=== PATIENT | female | born 1945 | race Caucasian/White ===

== ENCOUNTER 2016-07-01 15:28 | Inpatient (IN) ==
[2016-07-01] MEDS: *HR* HYDROcodone/Acet 5/325 mg TABLET PO PRN ×3 (17:17→23:08)
[2016-07-01] MEDS: Aspirin Enteric Coated 325 MG Tablet PO SCH (22:10)
[2016-07-01] MEDS: tiZANidine 4 MG TABLET PO SCH (22:14)
[2016-07-01] MEDS: Gabapentin 300 MG CAPSULE PO SCH (22:14)
[2016-07-01] MEDS: Famotidine 20 MG TABLET PO SCH (22:15)
[2016-07-01] MEDS: Primidone 50 MG TABLET PO SCH (22:22)
[2016-07-02] MEDS: *HR* HYDROcodone/Acet 5/325 mg TABLET PO PRN ×4 (04:03→21:31)
[2016-07-02 05:11] LABS: INR 1.2; Prothrombin Time 12.5 Seconds (9.4-12.1)
[2016-07-02 05:13] LABS: Activated Partial Thrombo Time 30.8 Seconds (26.0-36.0); Basophils % 0.6 %; Eosinophils # 0.2 K/mcL (0.0-0.6); Eosinophils % 3.1 %; Hematocrit 28.3 % (35.3-44.9); Hemoglobin 9.4 g/dL (11.5-15.4); Immature Granulocytes % 0.3 % (0-4); Lymphocytes # 1.4 K/mcL (0.6-4.6); Lymphocytes % 22.7 %; Mean Corpuscular HGB Conc 33.2 g/dL (31.6-35.5); Mean Corpuscular Hemoglobin 30.1 pg (28.0-33.3); Mean Corpuscular Volume 90.7 fL (83.0-100.0); Mean Platelet Volume 10.5 fL (9.4-12.4); Monocytes # 0.7 K/mcL (0.0-1.3); Monocytes % 10.7 %; Neutrophils # 3.9 K/mcL (1.6-8.9); Platelet Count 220 K/mcL (140-400); Red Blood Count 3.12 M/mcL (3.82-4.97); Red Cell Distribution Width 12.7 % (11.5-14.5); Segmented Neutrophils % 62.6 %
[2016-07-02 05:19] LABS: BUN/Creatinine Ratio 13 (6-26); Blood Urea Nitrogen 8 mg/dL (7-20); Calcium 8.6 mg/dL (8.6-10.8); Carbon Dioxide 22 mEq/L (19-29); Chloride 106 mEq/L (98-109); Glucose 100 mg/dL (70-99); Osmolality,Calculated 286 (280-300); Potassium 3.8 mEq/L (3.5-4.5); Sodium 139 mEq/L (136-145); eGFR For African Americans > 60 (> 60); eGFR For Non-African Americans > 60 (> 60)
[2016-07-02] MEDS: (Fluticasone/Vilanterol [Breo Ellipta 100-25 Mcg Inh]) IH SCH (08:30)
[2016-07-02] MEDS: Primidone 50 MG TABLET PO SCH ×2 (08:36→21:27)
[2016-07-02] MEDS: Furosemide 40 MG TABLET PO SCH (08:36)
[2016-07-02] MEDS: Aspirin Enteric Coated 325 MG Tablet PO SCH ×2 (08:36→21:28)
[2016-07-02] MEDS: Famotidine 20 MG TABLET PO SCH ×2 (08:36→21:29)
--- NOTE | 2016-07-02 10:47 | Internal Med History&Physical ---
Date of Encounter: 07/02/16 Time of Encounter: 10:45 Assessment and Plan (1) S/P TKR (total knee replacement) Current visit: Yes Status: Acute PT OT will be counseled to to work on functional mobility, improving balance, transfer, gait PTOT to work on increasing independence and safety prior to returning home. Qualifiers: Laterality: right Qualified Code(s): Z96.651 - Presence of right artificial knee joint (2) Hypertension Current visit: Yes Status: Chronic Qualifiers: Hypertension type: essential hypertension Qualified Code(s): I10 - Essential (primary) hypertension Internal Medicine - H&P: HPI Admitted From: Intrahospital Transfer Plans for Post Hospital Care: Home History of present illness: Ms. Reyez is a 71 year old female admitted to this facility for rehabilitation after undergoing a total knee replacement on the right secondary to osteoarthritis. On today's examination, patient only complains of moderate postop pain. She denies any shortness of breath. No chest pain. No nausea vomiting. Complains of swelling to the right lower extremities postop. Patient has had previous history of coronary disease and CHF as well as renal insufficiencies. Past Med Surg Social Fam HX - Past Medical History Medical history: arthritis, asthma, CHF, fibromyalgia, GERD, hyperlipidemia, hypertension, thyroid disease, other Psychiatric history: anxiety, depression - Past Surgical History Surgical History: knee replacement, other - Social History Smoking Status: Never smoker Smokeless Tobacco Status: No Alcohol use: none Drug use: none - Family History Father Adopted: No Living Status: Age at : 89 Cause of : old age Hx Family Cardiac Disorders: Yes (chf) Hx Family GI Disorders: Yes (liver disease) Internal Medicine - H&P: Meds Furosemide [Lasix] 40 mg PO DAILY 08/28/15 [History] Hydroxychloroquine [Plaquenuil] 200 mg PO BID 08/28/15 [History] Levothyroxine [Synthroid] 75 mcg PO DAILY 08/28/15 [History] Losartan Potassium [Cozaar] 100 mg PO DAILY 08/28/15 [History] Potassium Chloride [K-Tab ER] 10 meq PO DAILY 08/28/15 [History] Pravastatin Sodium [Pravachol] 20 mg PO DAILY 08/28/15 [History] Primidone [Mysoline] 100 mg PO BID 08/28/15 [History] Propranolol HCl 40 mg PO BID 08/28/15 [History] Sertraline [Zoloft] 100 mg PO DAILY 08/28/15 [History] HYDROcodone/Acet 5/325 mg [[place] 5-325 mg] 1 tab PO Q4H PRN #20 tab 02/10/16 [Rx ] Aspirin [Ecotrin] 325 mg PO BID 07/01/16 [History] Fluticasone/Vilanterol [Breo Ellipta 100-25 Mcg INH] 1 puff IH DAILY 07/01/16 [ History] Gabapentin [Neurontin] 300 mg PO HS 07/01/16 [History] HYDROcodone/Acet 5/325 mg [[place] 5-325 mg] 2 tab PO Q4H PRN 07/01/16 [History] Meclizine [Antivert] 25 mg PO TID PRN 07/01/16 [History] Ranitidine HCl [Heartburn Relief] 150 mg PO BID 07/01/16 [History] Tizanidine HCl 2 mg PO HS 07/01/16 [History] Allergies morphine Allergy (Verified 08/28/15 11:43) Rash All Systems PM: A 10-system review of systems was performed and is negative for pertinent findings except as documented above in the HPI. - Constitutional Constitutional: fatigue, malaise, no chills, no fever(s), no night sweats - Cardiovascular Cardiovascular ROS IM: irregular heart rhythm, no chest pain, no diaphoresis, no dyspnea, no lightheadedness, no palpitations, no syncope - Respiratory Respiratory: no cough, no dyspnea, no wheezing, no excessive phlegm production - Gastrointestinal Gastrointestinal: no abdominal pain, no diarrhea, no hematemesis, no hematochezia, no melena, no nausea, no vomiting - Musculoskeletal Musculoskeletal ROS IM: arthralgias, back pain, joint swelling, limited range of motion, stiffness - Neurological Neurological ROS: no confusion, no convulsions, no focal weakness, no numbness, no tingling, no tremor(s) - Constitutional Vitals: Temp Pulse Resp BP Pulse Ox 98.5 F 68 16 112/60 96 07/02/16 07:07 07/02/16 07:07 07/02/16 07:07 07/02/16 07:07 07/02/16 04:00 General appearance: Present: A&O X 3, pleasant, no acute distress - Respiratory Respiratory exam: Present: CTAB. Absent: accessory muscle use, rales, rhonchi, wheezes - Cardiovascular Cardiovascular exam: Present: RRR, +S1, +S2. Absent: diastolic murmur, gallop, rubs, systolic murmur - GI/Abdominal GI/Abdominal exam: Present: normal bowel sounds, soft, no peritoneal signs. Absent: distended, tenderness - Expanded Lower Extremities Exam Knee exam: Present: ecchymosis, swelling, tenderness Lower Leg exam: Present: swelling Internal Med - H&P Results - Labs CBC & Chem 7: 07/02/16 04:58 07/02/16 04:58 Labs: Short CBC 07/02/16 Range/Units 04:58 WBC 6.2 (4.3-11.1) K/mcL Hgb 9.4 L (11.5-15.4) g/dL Hct 28.3 L (35.3-44.9) % Plt Count 220 (140-400) K/mcL Neutrophils # 3.9 (1.6-8.9) K/mcL BMP 07/02/16 04:58 Sodium 139 Potassium 3.8 Chloride 106 Carbon Dioxide 22 BUN 8 Creatinine 0.64 Glucose 100 H Calcium 8.6 - VTE Documentation of Mechanical Device: Intermittent pneumatic compression device
[2016-07-02] MEDS: tiZANidine 4 MG TABLET PO SCH (21:29)
[2016-07-02] MEDS: Gabapentin 300 MG CAPSULE PO SCH (21:29)
[2016-07-03] MEDS: *HR* HYDROcodone/Acet 5/325 mg TABLET PO PRN ×3 (03:35→21:23)
[2016-07-03 05:54] LABS: Basophils % 0.6 %; Eosinophils # 0.3 K/mcL (0.0-0.6); Eosinophils % 3.9 %; Hematocrit 29.1 % (35.3-44.9); Hemoglobin 9.5 g/dL (11.5-15.4); Immature Granulocytes % 0.5 % (0-4); Lymphocytes # 1.4 K/mcL (0.6-4.6); Lymphocytes % 22.6 %; Mean Corpuscular HGB Conc 32.6 g/dL (31.6-35.5); Mean Corpuscular Hemoglobin 29.6 pg (28.0-33.3); Mean Corpuscular Volume 90.7 fL (83.0-100.0); Mean Platelet Volume 10.4 fL (9.4-12.4); Monocytes # 0.7 K/mcL (0.0-1.3); Monocytes % 10.8 %; Neutrophils # 3.9 K/mcL (1.6-8.9); Platelet Count 251 K/mcL (140-400); Red Blood Count 3.21 M/mcL (3.82-4.97); Red Cell Distribution Width 12.6 % (11.5-14.5); Segmented Neutrophils % 61.6 %
[2016-07-03 05:58] LABS: BUN/Creatinine Ratio 13 (6-26); Blood Urea Nitrogen 9 mg/dL (7-20); Calcium 8.7 mg/dL (8.6-10.8); Carbon Dioxide 24 mEq/L (19-29); Chloride 105 mEq/L (98-109); Glucose 103 mg/dL (70-99); Osmolality,Calculated 289 (280-300); Potassium 4.5 mEq/L (3.5-4.5); Sodium 140 mEq/L (136-145); eGFR For African Americans > 60 (> 60); eGFR For Non-African Americans > 60 (> 60)
[2016-07-03] MEDS: Primidone 50 MG TABLET PO SCH ×2 (08:24→21:26)
[2016-07-03] MEDS: Furosemide 40 MG TABLET PO SCH (08:25)
[2016-07-03] MEDS: Aspirin Enteric Coated 325 MG Tablet PO SCH ×2 (08:25→21:25)
[2016-07-03] MEDS: Famotidine 20 MG TABLET PO SCH ×2 (08:25→21:24)
[2016-07-03] MEDS: (Fluticasone/Vilanterol [Breo Ellipta 100-25 Mcg Inh]) IH SCH (08:32)
--- NOTE | 2016-07-03 13:26 | Internal Med Progress Note ---
Date of Encounter: 07/03/16 Time of Encounter: 13:24 - Assessment and plan (1) Sjogrens syndrome Current Visit: No Status: Chronic Assessment and plan: This noted Qualifiers: Qualified Code(s): M35.00 - Sicca syndrome, unspecified (2) S/P TKR (total knee replacement) Current Visit: Yes Status: Acute Assessment and plan: Patient is here for rehabilitation status post total knee replacement. Qualifiers: Laterality: right Qualified Code(s): Z96.651 - Presence of right artificial knee joint - Time Spent With Patient less than 15 minutes - Subjective Interval history: The patient is doing well she is minimum assist - Constitutional Vitals: Temp Pulse Resp BP Pulse Ox 98.3 F 73 16 155/79 96 07/03/16 07:15 07/03/16 09:23 07/03/16 09:23 07/03/16 09:23 07/03/16 09:23 General appearance: Present: A&O X 3, pleasant, no acute distress - Head Head exam: Present: atraumatic, normal inspection, normocephalic - Neck Neck exam general surgery: Present: supple, trachea midline. Absent: lymphadenopathy - Respiratory Respiratory exam: Present: CTAB. Absent: accessory muscle use, rales, rhonchi, wheezes - Cardiovascular Cardiovascular exam: Present: RRR, +S1, +S2. Absent: diastolic murmur, gallop, rubs, systolic murmur Internal Medicine: Result - Labs CBC & Chem 7: 07/03/16 05:35 07/03/16 05:35 Labs: Short CBC 07/03/16 Range/Units 05:35 WBC 6.4 (4.3-11.1) K/mcL Hgb 9.5 L (11.5-15.4) g/dL Hct 29.1 L (35.3-44.9) % Plt Count 251 (140-400) K/mcL Neutrophils # 3.9 (1.6-8.9) K/mcL BMP 07/03/16 05:35 Sodium 140 Potassium 4.5 Chloride 105 Carbon Dioxide 24 BUN 9 Creatinine 0.69 Glucose 103 H Calcium 8.7 Lab is stable - ABG Interpretation ABG results: PT/INR, D-dimer PT 12.5 Seconds (9.4-12.1) H 07/02/16 04:58 - VTE Documentation of Mechanical Device: Intermittent pneumatic compression device Consult Discharge Plan - Plan Referrals: Jacques Escamilla MD [Primary Care Provider] - Rene Yang DO [Non-Partnered Physician] - 07/13/16 9:15 am (2 week follow up at [address] [place] [address], [place] [address] )
[2016-07-03] MEDS: tiZANidine 4 MG TABLET PO SCH (21:23)
[2016-07-03] MEDS: Gabapentin 300 MG CAPSULE PO SCH (21:25)
[2016-07-04] MEDS: *HR* HYDROcodone/Acet 5/325 mg TABLET PO PRN ×5 (03:36→21:26)
[2016-07-04] MEDS: Primidone 50 MG TABLET PO SCH ×2 (08:37→21:24)
[2016-07-04] MEDS: Furosemide 40 MG TABLET PO SCH (08:37)
[2016-07-04] MEDS: Aspirin Enteric Coated 325 MG Tablet PO SCH ×2 (08:37→21:24)
[2016-07-04] MEDS: (Fluticasone/Vilanterol [Breo Ellipta 100-25 Mcg Inh]) IH SCH (08:38)
[2016-07-04] MEDS: Famotidine 20 MG TABLET PO SCH ×2 (08:38→21:25)
--- NOTE | 2016-07-04 14:33 | Internal Med Progress Note ---
Date of Encounter: 07/04/16 Time of Encounter: 14:31 - Assessment and plan (1) Sjogrens syndrome Current Visit: No Status: Chronic Assessment and plan: Noted Qualifiers: Qualified Code(s): M35.00 - Sicca syndrome, unspecified (2) S/P TKR (total knee replacement) Current Visit: Yes Status: Acute Assessment and plan: Reason for her admission to rehabilitation. Patient is doing quite well Qualifiers: Laterality: right Qualified Code(s): Z96.651 - Presence of right artificial knee joint - Subjective Interval history: The patient is doing well she is minimum assist. She gets out of bed on her own and ambulates without a great deal of difficulty using a walker - Constitutional Vitals: Temp Pulse Resp BP Pulse Ox 97.1 F L 70 16 124/56 95 07/04/16 07:00 07/04/16 07:00 07/04/16 07:00 07/04/16 07:00 07/04/16 07:00 General appearance: Present: A&O X 3, pleasant, no acute distress - Head Head exam: Present: atraumatic, normal inspection, normocephalic - Neck Neck exam general surgery: Present: supple, trachea midline. Absent: lymphadenopathy - Respiratory Respiratory exam: Present: CTAB. Absent: accessory muscle use, rales, rhonchi, wheezes - Cardiovascular Cardiovascular exam: Present: RRR, +S1, +S2. Absent: diastolic murmur, gallop, rubs, systolic murmur Internal Medicine: Result - Labs CBC & Chem 7: 07/03/16 05:35 07/03/16 05:35 Labs: Labs look stable - ABG Interpretation ABG results: PT/INR, D-dimer PT 12.5 Seconds (9.4-12.1) H 07/02/16 04:58 - VTE Documentation of Mechanical Device: Intermittent pneumatic compression device Consult Discharge Plan - Plan Referrals: Jacques Escamilla MD [Primary Care Provider] - Rene Yang DO [Non-Partnered Physician] - 07/13/16 9:15 am (2 week follow up at [address] [place] [address], [place] [address] )
[2016-07-04] MEDS: tiZANidine 4 MG TABLET PO SCH (21:24)
[2016-07-04] MEDS: Gabapentin 300 MG CAPSULE PO SCH (21:25)
[2016-07-05] MEDS: *HR* HYDROcodone/Acet 5/325 mg TABLET PO PRN ×4 (04:07→20:00)
[2016-07-05] MEDS: Furosemide 40 MG TABLET PO SCH (10:13)
[2016-07-05] MEDS: Aspirin Enteric Coated 325 MG Tablet PO SCH ×2 (10:14→19:57)
[2016-07-05] MEDS: Primidone 50 MG TABLET PO SCH ×2 (10:14→19:58)
[2016-07-05] MEDS: Famotidine 20 MG TABLET PO SCH ×2 (10:14→19:59)
[2016-07-05] MEDS: (Fluticasone/Vilanterol [Breo Ellipta 100-25 Mcg Inh]) IH SCH (10:16)
--- NOTE | 2016-07-05 12:19 | Physical Med Progress Note ---
Date of Encounter: 07/05/16 Time of Encounter: 12:17 Physical Medicine-PN: Subj Interval history: PMR PCC Note Ms. Reyez is SBA/Mod I for transfers. Ambulating 120 feet with Ariel/SBA. Patient performed steps-SBA/CGA with cues. She will need a tub transfer bench- patient unable to step over the tub. Patient is home alone in a 3 story dwelling. Plan for continued PT with home health. Plan for discharge to home on 07/07/16. - Constitutional Vitals: Vital Signs Temp Pulse Resp BP Pulse Ox 07/05/16 07:06 97.4 F L 70 18 149/80 97 07/04/16 19:17 98.4 F 78 18 123/62 96 Intake and Output 07/04/16 07/05/16 07/05/16 23:59 07:59 15:59 Intake Total 320 / 320 100 / 100 880 / 880 Balance 320 / 320 100 / 100 880 / 880 Intake: Oral 320 / 320 100 / 100 480 / 480 Free Water 400 / 400 Other: Meal Dinner Breakfast Percent of Meal Consumed 80% 100% Stool Size Moderate Stool Consistency soft formed Stool Color Brown # Voids 1 1 1 Physical Medicine-PN: Obj Data - Labs CBC & Chem 7: 07/03/16 05:35 07/03/16 05:35 - ABG Interpretation ABG results: PT/INR, D-dimer PT 12.5 Seconds (9.4-12.1) H 07/02/16 04:58 - VTE Documentation of Mechanical Device: Intermittent pneumatic compression device Consult Discharge Plan - Plan Referrals: Jacques Escamilla MD [Primary Care Provider] - Rene Yang DO [Non-Partnered Physician] - 07/13/16 9:15 am (2 week follow up at [address] [place] [address], [place] [address] )
[2016-07-05] MEDS: Gabapentin 300 MG CAPSULE PO SCH (19:59)
[2016-07-05] MEDS: tiZANidine 4 MG TABLET PO SCH (19:59)
[2016-07-06] MEDS: *HR* HYDROcodone/Acet 5/325 mg TABLET PO PRN ×4 (02:26→20:43)
[2016-07-06] MEDS: Aspirin Enteric Coated 325 MG Tablet PO SCH ×2 (08:08→20:41)
[2016-07-06] MEDS: Furosemide 40 MG TABLET PO SCH (08:08)
[2016-07-06] MEDS: Primidone 50 MG TABLET PO SCH ×2 (08:08→20:41)
[2016-07-06] MEDS: (Fluticasone/Vilanterol [Breo Ellipta 100-25 Mcg Inh]) IH SCH (08:09)
[2016-07-06] MEDS: Famotidine 20 MG TABLET PO SCH ×2 (08:09→20:42)
--- NOTE | 2016-07-06 14:03 | Discharge Summary ---
Date of Encounter: 07/06/16 Time of Encounter: 14:00 - Discharge Diagnosis (1) Sjogrens syndrome Priority: Secondary Status: Chronic Comments: Noted Qualifiers: Qualified Code(s): M35.00 - Sicca syndrome, unspecified (2) S/P TKR (total knee replacement) Priority: Secondary Status: Acute Comments: She gets up out of bed ambulates with a walker and is doing well overall only complaint is pain Qualifiers: Laterality: right Qualified Code(s): Z96.651 - Presence of right artificial knee joint - Discharge Medications Home Medications: Furosemide [Lasix] 40 mg PO DAILY 08/28/15 [History] Hydroxychloroquine [Plaquenuil] 200 mg PO BID 08/28/15 [History] Levothyroxine [Synthroid] 75 mcg PO DAILY 08/28/15 [History] Losartan Potassium [Cozaar] 100 mg PO DAILY 08/28/15 [History] Potassium Chloride [K-Tab ER] 10 meq PO DAILY 08/28/15 [History] Pravastatin Sodium [Pravachol] 20 mg PO DAILY 08/28/15 [History] Primidone [Mysoline] 100 mg PO BID 08/28/15 [History] Propranolol HCl 40 mg PO BID 08/28/15 [History] Sertraline [Zoloft] 100 mg PO DAILY 08/28/15 [History] HYDROcodone/Acet 5/325 mg [[place] 5-325 mg] 1 tab PO Q4H PRN #20 tab 02/10/16 [Rx ] Aspirin [Ecotrin] 325 mg PO BID 07/01/16 [History] Fluticasone/Vilanterol [Breo Ellipta 100-25 Mcg INH] 1 puff IH DAILY 07/01/16 [ History] Gabapentin [Neurontin] 300 mg PO HS 07/01/16 [History] HYDROcodone/Acet 5/325 mg [[place] 5-325 mg] 2 tab PO Q4H PRN 07/01/16 [History] Meclizine [Antivert] 25 mg PO TID PRN 07/01/16 [History] Ranitidine HCl [Heartburn Relief] 150 mg PO BID 07/01/16 [History] Tizanidine HCl 2 mg PO HS 07/01/16 [History] Allergies/Adverse Reactions: Allergies morphine Allergy (Verified 08/28/15 11:43) Rash Date of admission: 07/01/16 15:28 Primary care physician: Jacques Escamilla MD Consults: 07/01/16 16:54 Consult to Occupational Therapy [CONS] Routine Comment: Evaluate, develop and implement POC Consult to Physical Therapy [CONS] Routine Comment: Evaluate, develop and implement POC Consult to Recreational Therapy [CONS] Routine Comment: Evaluate, develop and implement POC Consult to Overhead Crane Truck Loader [CONS] Routine Reason for SW Consult: dc planning Discharging clinician: Frank Conrad Anticipated date of discharge: 07/06/16 - Patient Status Disposition: Home Health Service Condition: Good Functional capacity at discharge: uses cane/walker Overall status at discharge: patient is progressing back to baseline - Discharge Instructions Follow Up With: Jacques Escamilla MD [Primary Care Provider] - Rene Yang DO [Non-Partnered Physician] - 07/13/16 9:15 am (2 week follow up at [address] [place] [address], [place] [address] ) - Diet and Activity Activity: ambulate only with your walker Diet: advance to your usual diet Interval History: Patient was transferred here after a total knee replacement and has gone through therapy. Hospital course: Ms. Reyez is a 71 year old female Underwent total knee replacement was transferred here for rehabilitation is done well. She gets up from the bed overrode ambulates with a walker and is doing well. Did be able to do household distances at home. - Time Spent with Patient Total time spent providing and/or coordinating discharge services: Less than 30 minutes - Constitutional Vitals: Temp Pulse Resp BP Pulse Ox 97.4 F L 73 16 125/59 97 07/06/16 07:14 07/06/16 07:14 07/06/16 07:14 07/06/16 07:14 07/06/16 07:14 General appearance: Present: A&O X 3, pleasant, no acute distress - Head Head exam: Present: atraumatic, normal inspection, normocephalic - Neck Neck exam general surgery: Present: supple, trachea midline. Absent: lymphadenopathy - Respiratory Respiratory exam: Present: CTAB. Absent: accessory muscle use, rales, rhonchi, wheezes - Cardiovascular Cardiovascular exam: Present: RRR, +S1, +S2. Absent: diastolic murmur, gallop, rubs, systolic murmur - VTE Documentation of Mechanical Device: Intermittent pneumatic compression device
--- NOTE | 2016-07-06 14:05 | Physician Discharge Referral ---
Home Health/Hosp Referral Info Transfer to: Home Health Provider in Charge Post Discharge: PCP - Diagnosis (1) Sjogrens syndrome Priority: Secondary Status: Chronic (2) S/P TKR (total knee replacement) Priority: Primary Status: Acute - Respiratory Orders Smoking Cessation: Smoking cessation has been advised. For more information, call the [place] Tobacco Quit Line at 8-378-BOAY-NOW. - Services Needed Following services are medically necessary services: Nursing, Physical Therapy - Transfer Medications Home Medications: Furosemide [Lasix] 40 mg PO DAILY 08/28/15 [History] Hydroxychloroquine [Plaquenuil] 200 mg PO BID 08/28/15 [History] Levothyroxine [Synthroid] 75 mcg PO DAILY 08/28/15 [History] Losartan Potassium [Cozaar] 100 mg PO DAILY 08/28/15 [History] Potassium Chloride [K-Tab ER] 10 meq PO DAILY 08/28/15 [History] Pravastatin Sodium [Pravachol] 20 mg PO DAILY 08/28/15 [History] Primidone [Mysoline] 100 mg PO BID 08/28/15 [History] Propranolol HCl 40 mg PO BID 08/28/15 [History] Sertraline [Zoloft] 100 mg PO DAILY 08/28/15 [History] HYDROcodone/Acet 5/325 mg [[place] 5-325 mg] 1 tab PO Q4H PRN #20 tab 02/10/16 [Rx ] Aspirin [Ecotrin] 325 mg PO BID 07/01/16 [History] Fluticasone/Vilanterol [Breo Ellipta 100-25 Mcg INH] 1 puff IH DAILY 07/01/16 [ History] Gabapentin [Neurontin] 300 mg PO HS 07/01/16 [History] HYDROcodone/Acet 5/325 mg [[place] 5-325 mg] 2 tab PO Q4H PRN 07/01/16 [History] Meclizine [Antivert] 25 mg PO TID PRN 07/01/16 [History] Ranitidine HCl [Heartburn Relief] 150 mg PO BID 07/01/16 [History] Tizanidine HCl 2 mg PO HS 07/01/16 [History] Allergies/Adverse Reactions: Allergies morphine Allergy (Verified 08/28/15 11:43) Rash Certification: Further, I certify that my clinical findings support that this patient is homebound (i.e. absences from home require considerable and taxing effort and are for medical reasons or mandaen services or infrequently or short duration when for other reasons) because: Homebound Reason: Patient requires assistance of a person or device to safely leave home Attestation: My signature below is to certify that this patient is under my care and that I, or nurse practitioner, or a physician's web production assistant working with me, has a face-to -face encounter with this patient.
[2016-07-06] MEDS: tiZANidine 4 MG TABLET PO SCH (20:42)
[2016-07-06] MEDS: Gabapentin 300 MG CAPSULE PO SCH (20:42)
[2016-07-07] MEDS: *HR* HYDROcodone/Acet 5/325 mg TABLET PO PRN ×2 (04:39→08:38)
[2016-07-07 07:27] VITALS: BP 145/63
[2016-07-07] MEDS: Furosemide 40 MG TABLET PO SCH (08:33)
[2016-07-07] MEDS: Aspirin Enteric Coated 325 MG Tablet PO SCH (08:33)
[2016-07-07] MEDS: Primidone 50 MG TABLET PO SCH (08:33)
[2016-07-07] MEDS: Famotidine 20 MG TABLET PO SCH (08:34)
[2016-07-07] MEDS: (Fluticasone/Vilanterol [Breo Ellipta 100-25 Mcg Inh]) IH SCH (08:34)
--- NOTE | 2016-07-07 11:20 | Discharge Summary ---
Date of Encounter: 07/07/16 Time of Encounter: 11:18 - Discharge Diagnosis (1) Sjogrens syndrome Priority: Secondary Status: Chronic Comments: not Acute problem at the moment Qualifiers: Qualified Code(s): M35.00 - Sicca syndrome, unspecified (2) S/P TKR (total knee replacement) Priority: Primary Status: Acute Comments: Patient is completed therapy doing well will be going home with her family today Qualifiers: Laterality: right Qualified Code(s): Z96.651 - Presence of right artificial knee joint - Discharge Medications Home Medications: Furosemide [Lasix] 40 mg PO DAILY 08/28/15 [History] Hydroxychloroquine [Plaquenuil] 200 mg PO BID 08/28/15 [History] Levothyroxine [Synthroid] 75 mcg PO DAILY 08/28/15 [History] Losartan Potassium [Cozaar] 100 mg PO DAILY 08/28/15 [History] Potassium Chloride [K-Tab ER] 10 meq PO DAILY 08/28/15 [History] Pravastatin Sodium [Pravachol] 20 mg PO DAILY 08/28/15 [History] Primidone [Mysoline] 100 mg PO BID 08/28/15 [History] Propranolol HCl 40 mg PO BID 08/28/15 [History] Sertraline [Zoloft] 100 mg PO DAILY 08/28/15 [History] HYDROcodone/Acet 5/325 mg [[place] 5-325 mg] 1 tab PO Q4H PRN #20 tab 02/10/16 [Rx ] Aspirin [Ecotrin] 325 mg PO BID 07/01/16 [History] Fluticasone/Vilanterol [Breo Ellipta 100-25 Mcg INH] 1 puff IH DAILY 07/01/16 [ History] Gabapentin [Neurontin] 300 mg PO HS 07/01/16 [History] HYDROcodone/Acet 5/325 mg [[place] 5-325 mg] 2 tab PO Q4H PRN 07/01/16 [History] Meclizine [Antivert] 25 mg PO TID PRN 07/01/16 [History] Ranitidine HCl [Heartburn Relief] 150 mg PO BID 07/01/16 [History] Tizanidine HCl 2 mg PO HS 07/01/16 [History] Allergies/Adverse Reactions: Allergies morphine Allergy (Verified 08/28/15 11:43) Rash Date of admission: 07/01/16 15:28 Primary care physician: Jacques Escamilla MD Consults: 07/01/16 16:54 Consult to Occupational Therapy [CONS] Routine Comment: Evaluate, develop and implement POC Consult to Physical Therapy [CONS] Routine Comment: Evaluate, develop and implement POC Consult to Recreational Therapy [CONS] Routine Comment: Evaluate, develop and implement POC Consult to Operations Analyst [CONS] Routine Reason for SW Consult: dc planning Discharging clinician: Frank Conrad Anticipated date of discharge: 07/07/16 - Patient Status Disposition: Home Health Service Condition: Good Functional capacity at discharge: uses cane/walker Overall status at discharge: patient is progressing back to baseline - Discharge Instructions Instructions: Total Knee Replacement (DC), Heart Failure, Alteration Specialist (GEN) Follow Up With: Jacques Escamilla MD [Primary Care Provider] - 07/14/16 10:15 am Rene Yang DO [Non-Partnered Physician] - 07/13/16 9:15 am (2 week follow up at [address] [place] [address] ) Additional Instructions: Follow-up appointments: If there is not an appointment listed below, please call your physician and schedule a follow-up appointment. If you have congestive heart failure and your symptoms return, make an appointment with your physician. Medication List: Carry an up to date list of medications you are taking at all time. We have given you an updated medication list including any new medications that you have been prescribed. Please provide that list to your primary provider Symptoms: If your condition changes or you experience any of the following symptoms, notify your physician immediately: Unusual or worsening pain, fever, persistent nausea and vomiting, bleeding, increase in swelling (especially in your legs), sudden weight gain, extreme dizziness, chest pain, increased drainage or redness from a wound or incision. Go to the emergency department if you experience a problem with breathing. Weights: If you have a history of swelling or shortness of breath, weigh yourself daily and notify your physician if you have a weight gain of two or more pounds in one day or 5 or more pounds in a week. If you experience any of the warning signs for stroke: Sudden numbness or weakness of the face, arm or leg; especially on one side of the body, sudden confusion, trouble speaking or understanding, sudden trouble seeing in one or both eyes, sudden trouble walking, dizziness, loss of balance or coordination, sudden sever headache with no cause; Call 911 or go to the emergency room. Stroke is a medical emergency. Some risk factors for stroke: Age, cigarette smoking, diabetes, excessive alcohol consumption, family history , high blood pressure, overweight, physical inactivity, prior stroke, heart attack, diagnosis of carotid artery stenosis or other artery disease. If you smoke, STOP: Smoking or tobacco use significantly increases your risk of heart and lung disease. Your chance of disease greatly increases if you continue to smoke. For more information, call the [employer] quit line for smoking cessation 2-266 QUIT-NOW ( ) - Diet and Activity Activity: ambulate only with your walker Diet: advance to your usual diet Interval History: She was brought here after surgery for total knee replacement due to arthritis Hospital course: Ms. Reyez is a 71 year old female Who was brought to [facility] rehabilitation status post total knee replacement is done well will be discharged from the company of her family. She has follow-up appointment and medication - Time Spent with Patient Total time spent providing and/or coordinating discharge services: Less than 30 minutes - Constitutional Vitals: Temp Pulse Resp BP Pulse Ox 98.3 F 76 16 145/63 95 07/07/16 07:26 07/07/16 07:26 07/07/16 07:26 07/07/16 07:26 07/07/16 07:26 General appearance: Present: A&O X 3, pleasant, no acute distress - Head Head exam: Present: atraumatic, normal inspection, normocephalic - Neck Neck exam general surgery: Present: supple, trachea midline. Absent: lymphadenopathy - Respiratory Respiratory exam: Present: CTAB. Absent: accessory muscle use, rales, rhonchi, wheezes - Cardiovascular Cardiovascular exam: Present: RRR, +S1, +S2. Absent: diastolic murmur, gallop, rubs, systolic murmur - VTE Documentation of Mechanical Device: Intermittent pneumatic compression device
--- NOTE | 2016-07-07 11:33 | Physician Discharge Referral ---
Home Health/Hosp Referral Info Transfer to: Home Health Provider in Charge Post Discharge: PCP - Diagnosis (1) Sjogrens syndrome Priority: Secondary Status: Chronic (2) S/P TKR (total knee replacement) Priority: Primary Status: Acute - Respiratory Orders Smoking Cessation: Smoking cessation has been advised. For more information, call the [place] Tobacco Quit Line at 8-152-MCHS-NOW. - Diet/Nutrition Diet/Nutrition Orders: Regular - Activity Activity Orders: Walker - Services Needed Following services are medically necessary services: Nursing, Physical Therapy - Transfer Medications Home Medications: Furosemide [Lasix] 40 mg PO DAILY 08/28/15 [History] Hydroxychloroquine [Plaquenuil] 200 mg PO BID 08/28/15 [History] Levothyroxine [Synthroid] 75 mcg PO DAILY 08/28/15 [History] Losartan Potassium [Cozaar] 100 mg PO DAILY 08/28/15 [History] Potassium Chloride [K-Tab ER] 10 meq PO DAILY 08/28/15 [History] Pravastatin Sodium [Pravachol] 20 mg PO DAILY 08/28/15 [History] Primidone [Mysoline] 100 mg PO BID 08/28/15 [History] Propranolol HCl 40 mg PO BID 08/28/15 [History] Sertraline [Zoloft] 100 mg PO DAILY 08/28/15 [History] HYDROcodone/Acet 5/325 mg [[place] 5-325 mg] 1 tab PO Q4H PRN #20 tab 02/10/16 [Rx ] Aspirin [Ecotrin] 325 mg PO BID 07/01/16 [History] Fluticasone/Vilanterol [Breo Ellipta 100-25 Mcg INH] 1 puff IH DAILY 07/01/16 [ History] Gabapentin [Neurontin] 300 mg PO HS 07/01/16 [History] HYDROcodone/Acet 5/325 mg [[place] 5-325 mg] 2 tab PO Q4H PRN 07/01/16 [History] Meclizine [Antivert] 25 mg PO TID PRN 07/01/16 [History] Ranitidine HCl [Heartburn Relief] 150 mg PO BID 07/01/16 [History] Tizanidine HCl 2 mg PO HS 07/01/16 [History] Allergies/Adverse Reactions: Allergies morphine Allergy (Verified 08/28/15 11:43) Rash Certification: Further, I certify that my clinical findings support that this patient is homebound (i.e. absences from home require considerable and taxing effort and are for medical reasons or adventism services or infrequently or short duration when for other reasons) because: Homebound Reason: Patient requires assistance of a person or device to safely leave home Attestation: My signature below is to certify that this patient is under my care and that I, or nurse practitioner, or a physician's assistant professor working with me, has a face-to -face encounter with this patient.
== END 2016-07-07 11:45 | disposition home health service (06) | DRG 561 ==
LOC: INPGRE 15:28
PROVIDERS: ADMIT Internal Medicine; ATTEND Internal Medicine